=== PATIENT | male | born 1970 | race Caucasian/White ===

== ENCOUNTER 2022-07-10 18:48 | Emergency (ER) | payer BC ==
[2022-07-10] MEDS ORDERED: CIPRO250 MG PO (21:38)
[2022-07-10] MEDS ORDERED: NAPROXEN500 MG PO (21:38)
[2022-07-10] MEDS ORDERED: BACTROBAN OINT22 GM EXT (21:38)
== END 2022-07-10 22:15 | disposition home or self-care (01) ==
LOC: ER1 18:48
DX: S91.342A Puncture wound with foreign body, left foot, initial encounter (principal); I10 Essential (primary) hypertension; W45.8XXA Other foreign body or object entering through skin, initial encounter; Y92.009 Unspecified place in unspecified non-institutional (private) residence as the place of occurrence of the external cause
CPT/HCPCS: 73630; 99283; J1885